=== PATIENT | female | born 1975 | race Caucasian/White ===

== ENCOUNTER 2016-09-20 18:46 | Emergency (ER) | payer OTHER ==
--- NOTE | 2016-09-20 20:27 | DIAGNOSTIC IMAGING REPORT ---
PROCEDURE: XR FOOT 3 VIEWS - LEFT INDICATION: TRAUMA TECHNIQUE: Four views of the left foot. COMPARISON: None. FINDINGS: Normal mineralization. No fractures. Normal osseous alignment. No suspicious soft-tissue calcification or radiodense foreign bodies. IMPRESSION: 1. Normal left foot.
--- NOTE | 2016-09-20 20:38 | ED ORDER SUMMARY ---
..... Patient: MIKEY GORDON OrderSheet [facility] VisitID: [id number] [address] [place] [address] 41y, F Registration Date/Time: 09/20/2016 ORDER SHEET Weight: 118.8 kg (stated) Allergies: No Known Drug Allergy GENERAL ORDERS: Foot 3V Left Urgent (19:00 09/20/2016 Marie Alejandro) (Ack 19:06 Jeny) (19:17 DDean R.N.) MEDICATION ORDERS: Motrin PO 800 mg (NOW) (19:31 09/20/2016 Marie Alejandro) (19:34 DDean R.N.) Hydrocodone-APAP PO 5/325 mg (NOW) (21:00 09/20/2016 DDean R.N. verbal order read back to Marie Alejandro) (21:01 DDean R.N.) IV FLUIDS: ORDER SHEET NOTES: [Electronically signed by Rehana Trivedi R.N. (:27 09/20/2016)] [Electronically signed by Bernardo Becerril Dr. (23:34 09/21/2016)] [Electronically locked/signed by Rehana Trivedi R.N. (:09/20/2016)]
--- NOTE | 2016-09-20 20:38 | ED CLINICAL REPORT ---
Clinical Report - Physicians/Mid Levels [facility] [address] [place] [address] 09/20/2016 18:47 [id number] Time Seen: 18:53; initial patient contact. Arrived- By private vehicle. Historian- patient. HISTORY OF PRESENT ILLNESS Chief Complaint: Injury to the left foot. The injury happened just prior to arrival. The patient sustained a moderate direct blow- dropped an object on the foot. Patient is experiencing moderate pain. Patient denies injury to the head or neck. REVIEW OF SYSTEMS The patient complains of pain on weight bearing. She has had swelling. No weakness or numbness. All systems otherwise negative, except as recorded above. PAST HISTORY Negative. Problems: no known problems. Surgeries: No history of previous surgery. Additional Surgeries: no known surgeries. Medications: Cyclobenzaprine HCl Oral 10 mg, 3x a day (david't filled for several months ). Omeprazole Oral 20 mg, daily. Vicodin Oral 5 mg, 4x a day as needed (hasn't taken for several months ). Allergies: No Known Drug Allergy. SOCIAL HISTORY Never smoker. Occasional alcohol use. No drug use. ADDITIONAL NOTES The nursing notes have been reviewed. PHYSICAL EXAM Vital Signs: 09/20/2016 18:45 BP: 154/84. HR: 96. RR: 18. O2 saturation: 97%. Temp: 98.2 F. Pain level now: 5/10. Have been reviewed. Hypertensive. Heart rate normal. Respiratory rate normal. Temperature normal. Oxygen saturation normal. Skin: Skin intact. Skin warm and dry. Extremities: Left foot: mild erythema, tenderness and swelling. Limited weight bearing secondary to pain. Neurovascular intact distally. No laceration, ecchymosis or deformity. No ankle injury. Foot and ankle exam otherwise negative. Neuro, Vascular and Tendons: Vascular status intact. Sensation intact. Motor intact. Tendon function intact. Gait: Limping gait. Neuro: Oriented X 3. No motor deficit. No sensory deficit. LABS, X-RAYS, AND EKG Lt Foot X-ray: No fracture. Normal alignment. No bony lesion, air in the soft tissue or foreign body. Joint spaces normal. Soft tissue swelling. Views: 3 view foot series. Technique: good. The X-rays were independently viewed by me and interpreted contemporaneously by me. PROGRESS AND PROCEDURES Disposition: Discharged home in good condition. Condition: good. CLINICAL IMPRESSION Single contusion to the left foot. INSTRUCTIONS Apply ice for 20 minutes four times a day until better. Don't apply ice directly to skin. You may walk and bear weight as tolerated. Your Current Medications: CONTINUE TAKING THE FOLLOWING MEDICATIONS: Cyclobenzaprine HCl Oral : 10 mg 3x a day, david't filled for several months. Omeprazole Oral : 20 mg daily. Vicodin Oral : 5 mg 4x a day, prn, hasn't taken for several months. Prescription Medications: Hydrocodone/APAP 5mg / 325mg: take 1 orally every 6 hours as needed for pain. Dispense ten (10). Follow-up: Follow up with your doctor in about four days if not better. Call for an appointment. Screening today revealed the patient's blood pressure to be in the hypertensive range. The patient should follow up with a primary care provider for blood pressure management. (Electronically signed by Bernardo Becerril Dr. 09/21/2016 23:34)
--- NOTE | 2016-09-20 20:38 | ED NURSING NOTES ---
Clinical Report - Nurses [facility] [address] [place] [address] 09/20/2016 18:47 Patient: MIKEY GORDON TRIAGE Triage time 1845. Acuity: LEVEL 4. 18:45. IRENE COMA SCORE: [place] Coma Scale: 15- eyes open spontaneously (4); best verbal response- oriented x 4 (5); best motor response- obeys commands (6). --18:54 Rehana Trivedi R.N. 18:45 09/20/16. BP: 154/84. HR: 96. RR: 18. O2 saturation: 97%. Temp: 98.2 F. Pain level now: 08/15. --18:54 Rehana Trivedi R.N. Chief Complaint: INJURY TO LEFT FOOT. --18:55 Rehana Trivedi R.N. Weight: 118.8 kg stated. Height/Length: 69 inches Per Patient. BMI: 38.7. --18:53 Rehana Trivedi R.N. Medications Cyclobenzaprine HCl Oral 10 mg, 3x a day (david't filled for several months ). Omeprazole Oral 20 mg, daily. Vicodin Oral 5 mg, 4x a day as needed (hasn't taken for several months ). --18:50 Rehana Trivedi R.N. Allergies No Known Drug Allergy. --18:51 Rehana Trivedi R.N. History Arrived by EMS. Historian: patient. Unaccompanied. Primary physician (lilly barone). This occurred just prior to arrival. Mechanism of injury: she sustained a crush injury. She has had trouble walking. ( arthritis). PAST MEDICAL HX: Tetanus status: up-to-date. The patient is post-menopausal. SOCIAL HX: Never smoker. Occasional alcohol use. No drug use. --18:54 Rehana Trivedi R.N. This occurred just prior to arrival. Mechanism of injury: (dropped #20 wood shelving on foot). --18:55 Rehana Trivedi R.N. Interventions ID band on patient. To treatment room. --18:54 Rehana Trivedi R.N. PHYSICAL ASSESSMENT 18:55. To room via stretcher. GENERAL / NEURO / PSYCH: Oriented X 4. Alert. Appears in pain. EXTREMITIES: Limited ROM present. Pain with weight bearing. Left foot: tenderness and swelling. Limited weight bearing secondary to pain. --18:57 Rehana Trivedi R.N. NURSING PROGRESS NOTES 18:55. Cold pack applied. Patient gowned. Reassurance given. Patient identifiers checked. Call light placed in reach. Side rails up. Bed placed in lowest position. Patient ready for evaluation- chart flagged. --18:56 Rehana Trivedi R.N. 19:10 09/20/16. ( port x-ray at bedside for foot films). --19:10 Rehana Trivedi R.N. 19:28 09/20/16. ( c/o worsening pain in foot, ERMD notified). --19:28 Rehana Trivedi R.N. 19:34 09/20/2016 Motrin PO Tablets 800 mg given. Allergies verified and confirmed 5 rights. --19:34 Rehana Trivedi R.N. 20:25 on phone, foot elevated on pillow, ice pack renewed. ( ice pack renewed,). --20:25 Rehana Trivedi R.N. 20:40 09/20/2016 Hydrocodone-APAP (Hydrocodone-Acetaminophen) PO 5/325 mg Tablets 1 tab given. Allergies verified, confirmed 5 rights and sedative warning given to the patient. --21:01 Rehana Trivedi R.N. DISPOSITION / DISCHARGE 20:50. Condition at departure: improved and stable. No learning barriers present. Discharge instructions provided and reviewed with the patient. Reviewed medication(s) side effects, precautions and dosing information. Prescription(s) given to the patient (vicodin,). Reviewed crutch walking and splint care instructions (ice, elevate). Reviewed referral to an orthopedic surgeon. Patient verbalized understanding. Written instructions provided in Kiswahili. ( use crutches and walking boot you have at home). The patient was discharged home and unaccompanied at time of discharge. She left the Emergency Department on crutches and via taxi. --21:26 Rehana Trivedi R.N. 20:50 09/20/16. BP: 148/80. HR: 88. RR: 18. O2 saturation: 98%. Temp: deferred. Pain level now: 08/15. --21:26 Rehana Trivedi R.N. Locked/Released at 09/20/2016 21:27 by Rehana Trivedi R.N.
--- NOTE | 2016-09-20 20:38 | ED ORDER SUMMARY ---
..... Patient: MIKEY GORDON OrderSheet [facility] VisitID: [id number] [address] [place] [address] 41y, F Registration Date/Time: 09/20/2016 ORDER SHEET Weight: 118.8 kg (stated) Allergies: No Known Drug Allergy GENERAL ORDERS: Foot 3V Left Urgent (19:00 09/20/2016 Marie Alejandro) (Ack 19:06 Jeny) (19:17 DDean R.N.) MEDICATION ORDERS: Motrin PO 800 mg (NOW) (19:31 09/20/2016 Marie Alejandro) (19:34 DDean R.N.) Hydrocodone-APAP PO 5/325 mg (NOW) (21:00 09/20/2016 DDean R.N. verbal order read back to Marie Alejandro) (21:01 DDean R.N.) IV FLUIDS: ORDER SHEET NOTES: [Electronically signed by Rehana Trivedi R.N. (:27 09/20/2016)] [Electronically signed by Bernardo Becerril Dr. (23:34 09/21/2016)] [Electronically locked/signed by Rehana Trivedi R.N. (:09/20/2016)]
--- NOTE | 2016-09-20 20:38 | ED CLINICAL REPORT ---
Clinical Report - Physicians/Mid Levels [facility] [address] [place] [address] 09/20/2016 18:47 [id number] Time Seen: 18:53; initial patient contact. Arrived- By private vehicle. Historian- patient. HISTORY OF PRESENT ILLNESS Chief Complaint: Injury to the left foot. The injury happened just prior to arrival. The patient sustained a moderate direct blow- dropped an object on the foot. Patient is experiencing moderate pain. Patient denies injury to the head or neck. REVIEW OF SYSTEMS The patient complains of pain on weight bearing. She has had swelling. No weakness or numbness. All systems otherwise negative, except as recorded above. PAST HISTORY Negative. Problems: no known problems. Surgeries: No history of previous surgery. Additional Surgeries: no known surgeries. Medications: Cyclobenzaprine HCl Oral 10 mg, 3x a day (david't filled for several months ). Omeprazole Oral 20 mg, daily. Vicodin Oral 5 mg, 4x a day as needed (hasn't taken for several months ). Allergies: No Known Drug Allergy. SOCIAL HISTORY Never smoker. Occasional alcohol use. No drug use. ADDITIONAL NOTES The nursing notes have been reviewed. PHYSICAL EXAM Vital Signs: 09/20/2016 18:45 BP: 154/84. HR: 96. RR: 18. O2 saturation: 97%. Temp: 98.2 F. Pain level now: 5/10. Have been reviewed. Hypertensive. Heart rate normal. Respiratory rate normal. Temperature normal. Oxygen saturation normal. Skin: Skin intact. Skin warm and dry. Extremities: Left foot: mild erythema, tenderness and swelling. Limited weight bearing secondary to pain. Neurovascular intact distally. No laceration, ecchymosis or deformity. No ankle injury. Foot and ankle exam otherwise negative. Neuro, Vascular and Tendons: Vascular status intact. Sensation intact. Motor intact. Tendon function intact. Gait: Limping gait. Neuro: Oriented X 3. No motor deficit. No sensory deficit. LABS, X-RAYS, AND EKG Lt Foot X-ray: No fracture. Normal alignment. No bony lesion, air in the soft tissue or foreign body. Joint spaces normal. Soft tissue swelling. Views: 3 view foot series. Technique: good. The X-rays were independently viewed by me and interpreted contemporaneously by me. PROGRESS AND PROCEDURES Disposition: Discharged home in good condition. Condition: good. CLINICAL IMPRESSION Single contusion to the left foot. INSTRUCTIONS Apply ice for 20 minutes four times a day until better. Don't apply ice directly to skin. You may walk and bear weight as tolerated. Your Current Medications: CONTINUE TAKING THE FOLLOWING MEDICATIONS: Cyclobenzaprine HCl Oral : 10 mg 3x a day, david't filled for several months. Omeprazole Oral : 20 mg daily. Vicodin Oral : 5 mg 4x a day, prn, hasn't taken for several months. Prescription Medications: Hydrocodone/APAP 5mg / 325mg: take 1 orally every 6 hours as needed for pain. Dispense ten (10). Follow-up: Follow up with your doctor in about four days if not better. Call for an appointment. Screening today revealed the patient's blood pressure to be in the hypertensive range. The patient should follow up with a primary care provider for blood pressure management. (Electronically signed by Bernardo Becerril Dr. 09/21/2016 23:34)
--- NOTE | 2016-09-20 20:38 | ED NURSING NOTES ---
Clinical Report - Nurses [facility] [address] [place] [address] 09/20/2016 18:47 Patient: MIKEY GORDON TRIAGE Triage time 1845. Acuity: LEVEL 4. 18:45. IRENE COMA SCORE: [place] Coma Scale: 15- eyes open spontaneously (4); best verbal response- oriented x 4 (5); best motor response- obeys commands (6). --18:54 Rehana Trivedi R.N. 18:45 09/20/16. BP: 154/84. HR: 96. RR: 18. O2 saturation: 97%. Temp: 98.2 F. Pain level now: 08/15. --18:54 Rehana Trivedi R.N. Chief Complaint: INJURY TO LEFT FOOT. --18:55 Rehana Trivedi R.N. Weight: 118.8 kg stated. Height/Length: 69 inches Per Patient. BMI: 38.7. --18:53 Rehana Trivedi R.N. Medications Cyclobenzaprine HCl Oral 10 mg, 3x a day (david't filled for several months ). Omeprazole Oral 20 mg, daily. Vicodin Oral 5 mg, 4x a day as needed (hasn't taken for several months ). --18:50 Rehana Trivedi R.N. Allergies No Known Drug Allergy. --18:51 Rehana Trivedi R.N. History Arrived by EMS. Historian: patient. Unaccompanied. Primary physician (lilly barone). This occurred just prior to arrival. Mechanism of injury: she sustained a crush injury. She has had trouble walking. ( arthritis). PAST MEDICAL HX: Tetanus status: up-to-date. The patient is post-menopausal. SOCIAL HX: Never smoker. Occasional alcohol use. No drug use. --18:54 Rehana rTivedi R.N. This occurred just prior to arrival. Mechanism of injury: (dropped #20 wood shelving on foot). --18:55 Rehana Trivedi R.N. Interventions ID band on patient. To treatment room. --18:54 Rehana Trivedi R.N. PHYSICAL ASSESSMENT 18:55. To room via stretcher. GENERAL / NEURO / PSYCH: Oriented X 4. Alert. Appears in pain. EXTREMITIES: Limited ROM present. Pain with weight bearing. Left foot: tenderness and swelling. Limited weight bearing secondary to pain. --18:57 Rehana Trivedi R.N. NURSING PROGRESS NOTES 18:55. Cold pack applied. Patient gowned. Reassurance given. Patient identifiers checked. Call light placed in reach. Side rails up. Bed placed in lowest position. Patient ready for evaluation- chart flagged. --18:56 Rehana Trivedi R.N. 19:10 09/20/16. ( port x-ray at bedside for foot films). --19:10 Rehana Trivedi R.N. 19:28 09/20/16. ( c/o worsening pain in foot, ERMD notified). --19:28 Rehana Trivedi R.N. 19:34 09/20/2016 Motrin PO Tablets 800 mg given. Allergies verified and confirmed 5 rights. --19:34 Rehana Trivedi R.N. 20:25 on phone, foot elevated on pillow, ice pack renewed. ( ice pack renewed,). --20:25 Rehana Trivedi R.N. 20:40 09/20/2016 Hydrocodone-APAP (Hydrocodone-Acetaminophen) PO 5/325 mg Tablets 1 tab given. Allergies verified, confirmed 5 rights and sedative warning given to the patient. --21:01 Rehana Trivedi R.N. DISPOSITION / DISCHARGE 20:50. Condition at departure: improved and stable. No learning barriers present. Discharge instructions provided and reviewed with the patient. Reviewed medication(s) side effects, precautions and dosing information. Prescription(s) given to the patient (vicodin,). Reviewed crutch walking and splint care instructions (ice, elevate). Reviewed referral to an orthopedic surgeon. Patient verbalized understanding. Written instructions provided in Sami. ( use crutches and walking boot you have at home). The patient was discharged home and unaccompanied at time of discharge. She left the Emergency Department on crutches and via taxi. --21:26 Rehana Trivedi R.N. 20:50 09/20/16. BP: 148/80. HR: 88. RR: 18. O2 saturation: 98%. Temp: deferred. Pain level now: 08/15. --21:26 Rehnaa Trivedi R.N. Locked/Released at 09/20/2016 21:27 by Rehana Trivedi R.N.
--- NOTE | 2016-09-21 23:34 | ED MED RECONCILIATION SUMMARY ---
Patient: MIKEY GORDON Medication Reconciliation Report [facility] VisitID: [id number] [address] [place] [address] 41y, F Registration Date/Time: 09/20/2016 Weight: 118.8 kg Height/Length: 69 in. BMI: 38.7 ALLERGIES: No Known Drug Allergy The patient's Home Medications are listed below: CONTINUE TAKING THE FOLLOWING MEDICATIONS: Cyclobenzaprine HCl Oral 10 mg, 3x a day, david't filled for several months Omeprazole Oral 20 mg, daily Vicodin Oral 5 mg, 4x a day, hasn't taken for several months The source(s) of the original Home Medication information: Not obtained. The following Medications were given to the patient in the Emergency Department: Motrin [PO] PO 800 mg, administered: 09/20/2016 7:34:00 PM Hydrocodone-APAP [PO] PO 1 tab, administered: 09/20/2016 8:40:00 PM The following Medications were prescribed to the patient: Hydrocodone/APAP 5mg / 325mg: take 1 orally every 6 hours as needed for pain. Dispense ten (10). -- Bernardo Becerril Dr.
--- NOTE | 2016-09-21 23:34 | ED MAR SUMMARY ---
..... Medication Administration Record [facility] [address] [place] [address] Patient: MIKEY GORDON Visit ID: [id number] 41y, F Weight: 118.8 kg Height/Length: 69 in BMI: 38.7 ALLERGIES: No Known Drug Allergy Given 19:34 09/20/2016 Rehana Trivedi, R.N. Medication Administered: MOTRIN [PO], Dose: 800 mg Tablets PO. Medication Ordered: Motrin PO 800 mg (NOW). Given 20:40 09/20/2016 Rehana Trivedi, R.N. Medication Administered: HYDROCODONE-APAP [PO] (HYDROCODONE-ACETAMINOPHEN), Dose: 1 tab 5/325 mg Tablets PO. Medication Ordered: Hydrocodone-APAP PO 5/325 mg (NOW).
--- NOTE | 2016-09-21 23:34 | ED DISCHARGE INSTRUCTIONS ---
Patient: MIKEY GORDON General Instructions [facility] VisitID: [id number] [address] [place] [address] 41y, F Registration Date/Time: 09/20/2016 Single contusion to the left foot. INSTRUCTIONS Apply ice for 20 minutes four times a day until better. Don't apply ice directly to skin. You may walk and bear weight as tolerated. Your Current Medications: CONTINUE TAKING THE FOLLOWING MEDICATIONS: Cyclobenzaprine HCl Oral : 10 mg 3x a day, david't filled for several months. Omeprazole Oral : 20 mg daily. Vicodin Oral : 5 mg 4x a day, prn, hasn't taken for several months. Prescription Medications: Hydrocodone/APAP 5mg / 325mg: take 1 orally every 6 hours as needed for pain. Dispense ten (10). Follow-up: Follow up with your doctor in about four days if not better. Call for an appointment. Screening today revealed the patient's blood pressure to be in the hypertensive range. The patient should follow up with a primary care provider for blood pressure management. ADDITIONAL INFORMATION Contusion,Soft Tissue You have a CONTUSION, which is a bruise with swelling and some bleeding under the skin. There are no broken bones. This injury takes a few days to a few weeks to heal. Home Care: 1) Keep the injured part elevated to reduce pain and swelling. This is especially important during the first 48 hours. 2) Make an ice pack (ice cubes in a plastic bag, wrapped in a towel) and apply for 20 minutes every 1-2 hours the first day. Continue this 3-4 times a day until the pain and swelling goes away. 3) You may use acetaminophen (Tylenol) or ibuprofen (Motrin, Advil) to control pain, unless another pain medicine was prescribed. [ NOTE : If you have chronic liver or kidney disease or ever had a stomach ulcer or GI bleeding, talk with your doctor before using these medicines.] Follow Up with your doctor or this facility if you are not improving within the next THREE days. [NOTE: If X-rays were taken, they will be reviewed by a radiologist. You will be notified of any new findings that may affect your care.] Get Prompt Medical Attention if any of the following occur: -- Pain or swelling increases -- Injured arm or leg becomes cold, blue, numb or tingly -- Redness, warmth or drainage from the skin Hydrocodone Bitartrate, Acetaminophen Oral tablet What is this medicine? ACETAMINOPHEN; HYDROCODONE (a set a BETI miguel fen; socrates droe KOE done) is a pain reliever. It is used to treat mild to moderate pain. How should I use this medicine? Take this medicine by mouth. Swallow it with a full glass of water. Follow the directions on the prescription label. If the medicine upsets your stomach, take the medicine with food or milk. Do not take more than you are told to take. Talk to your photography coordinator regarding the use of this medicine in children. This medicine is not approved for use in children. What side effects may I notice from receiving this medicine? Side effects that you should report to your doctor or health palliative care physician as soon as possible: allergic reactions like skin rash, itching or hives, swelling of the face, lips, or tongue breathing problems confusion feeling faint or lightheaded, falls stomach pain yellowing of the eyes or skin Side effects that usually do not require medical attention (report to your doctor or health palliative care physician if they continue or are bothersome): nausea, vomiting stomach upset What may interact with this medicine? alcohol antihistamines isoniazid medicines for depression, anxiety, or psychotic disturbances medicines for sleep muscle relaxants naltrexone narcotic medicines (opiates) for pain phenobarbital ritonavir tramadol What if I miss a dose? If you miss a dose, take it as soon as you can. If it is almost time for your next dose, take only that dose. Do not take double or extra doses. Where should I keep my medicine? Keep out of the reach of children. This medicine can be abused. Keep your medicine in a safe place to protect it from theft. Do not share this medicine with anyone. Selling or giving away this medicine is dangerous and against the law. Store at room temperature between 15 and 30 degrees C (59 and 86 degrees F). Protect from light. Keep container tightly closed. Throw away any unused medicine after the expiration date. Discard unused medicine and used packaging carefully. Pets and children can be harmed if they find used or lost packages. What should I tell my health care provider before I take this medicine? They need to know if you have any of these conditions: brain tumor Crohn's disease, inflammatory bowel disease, or ulcerative colitis drink more than 3 alcohol-containing drinks per day drug abuse or addiction head injury heart or circulation problems kidney disease or problems going to the bathroom liver disease lung disease, asthma, or breathing problems an unusual or allergic reaction to acetaminophen, hydrocodone, other opioid analgesics, other medicines, foods, dyes, or preservatives or trying to get breast-feeding What should I watch for while using this medicine? Tell your doctor or health palliative care physician if your pain does not go away, if it gets worse, or if you have new or a different type of pain. You may develop tolerance to the medicine. Tolerance means that you will need a higher dose of the medicine for pain relief. Tolerance is normal and is expected if you take the medicine for a long time. Do not suddenly stop taking your medicine because you may develop a severe reaction. Your body becomes used to the medicine. This does NOT mean you are addicted. Addiction is a behavior related to getting and using a drug for a non-medical reason. If you have pain, you have a medical reason to take pain medicine. Your doctor will tell you how much medicine to take. If your doctor wants you to stop the medicine, the dose will be slowly lowered over time to avoid any side effects. You may get drowsy or dizzy when you first start taking the medicine or change doses. Do not drive, use machinery, or do anything that may be dangerous until you know how the medicine affects you. Stand or sit up slowly. There are different types of narcotic medicines (opiates) for pain. If you take more than one type at the same time, you may have more side effects. Give your health care provider a list of all medicines you use. Your doctor will tell you how much medicine to take. Do not take more medicine than directed. Call emergency for help if you have problems breathing. The medicine will cause constipation. Try to have a bowel movement at least every 2 to 3 days. If you do not have a bowel movement for 3 days, call your doctor or health palliative care physician. Too much acetaminophen can be very dangerous. Do not take Tylenol (acetaminophen) or medicines that contain acetaminophen with this medicine. Many non-prescription medicines contain acetaminophen. Always read the labels carefully. You have been given the following additional information: Contusion, Soft Tissue Hydrocodone Bitartrate, Acetaminophen Oral tablet You may walk and bear weight as tolerated. (Electronically signed by Bernardo Becerril Dr. 09/21/2016 23:34)
--- NOTE | 2016-09-21 23:34 | ED MAR SUMMARY ---
..... Medication Administration Record [facility] [address] [address] Patient: MIKEY GORDON Visit ID: [id number] 41y, F Weight: 118.8 kg Height/Length: 69 in BMI: 38.7 ALLERGIES: No Known Drug Allergy Given 19:34 09/20/2016 Rehana Trivedi, R.N. Medication Administered: MOTRIN [PO], Dose: 800 mg Tablets PO. Medication Ordered: Motrin PO 800 mg (NOW). Given 20:40 09/20/2016 Rehana Trivedi, R.N. Medication Administered: HYDROCODONE-APAP [PO] (HYDROCODONE-ACETAMINOPHEN), Dose: 1 tab 5/325 mg Tablets PO. Medication Ordered: Hydrocodone-APAP PO 5/325 mg (NOW).
--- NOTE | 2016-09-21 23:34 | ED MED RECONCILIATION SUMMARY ---
Patient: MIKEY GORDON Medication Reconciliation Report [facility] VisitID: [id number] [address] [place] [address] 41y, F Registration Date/Time: 09/20/2016 Weight: 118.8 kg Height/Length: 69 in. BMI: 38.7 ALLERGIES: No Known Drug Allergy The patient's Home Medications are listed below: CONTINUE TAKING THE FOLLOWING MEDICATIONS: Cyclobenzaprine HCl Oral 10 mg, 3x a day, david't filled for several months Omeprazole Oral 20 mg, daily Vicodin Oral 5 mg, 4x a day, hasn't taken for several months The source(s) of the original Home Medication information: Not obtained. The following Medications were given to the patient in the Emergency Department: Motrin [PO] PO 800 mg, administered: 09/20/2016 7:34:00 PM Hydrocodone-APAP [PO] PO 1 tab, administered: 09/20/2016 8:40:00 PM The following Medications were prescribed to the patient: Hydrocodone/APAP 5mg / 325mg: take 1 orally every 6 hours as needed for pain. Dispense ten (10). -- Bernardo Becerril Dr.
--- NOTE | 2016-09-21 23:34 | ED DISCHARGE INSTRUCTIONS ---
Patient: MIKEY GORDON General Instructions [facility] VisitID: [id number] [address] [address] 41y, F Registration Date/Time: 09/20/2016 Single contusion to the left foot. INSTRUCTIONS Apply ice for 20 minutes four times a day until better. Don't apply ice directly to skin. You may walk and bear weight as tolerated. Your Current Medications: CONTINUE TAKING THE FOLLOWING MEDICATIONS: Cyclobenzaprine HCl Oral : 10 mg 3x a day, david't filled for several months. Omeprazole Oral : 20 mg daily. Vicodin Oral : 5 mg 4x a day, prn, hasn't taken for several months. Prescription Medications: Hydrocodone/APAP 5mg / 325mg: take 1 orally every 6 hours as needed for pain. Dispense ten (10). Follow-up: Follow up with your doctor in about four days if not better. Call for an appointment. Screening today revealed the patient's blood pressure to be in the hypertensive range. The patient should follow up with a primary care provider for blood pressure management. ADDITIONAL INFORMATION Contusion,Soft Tissue You have a CONTUSION, which is a bruise with swelling and some bleeding under the skin. There are no broken bones. This injury takes a few days to a few weeks to heal. Home Care: 1) Keep the injured part elevated to reduce pain and swelling. This is especially important during the first 48 hours. 2) Make an ice pack (ice cubes in a plastic bag, wrapped in a towel) and apply for 20 minutes every 1-2 hours the first day. Continue this 3-4 times a day until the pain and swelling goes away. 3) You may use acetaminophen (Tylenol) or ibuprofen (Motrin, Advil) to control pain, unless another pain medicine was prescribed. [ NOTE : If you have chronic liver or kidney disease or ever had a stomach ulcer or GI bleeding, talk with your doctor before using these medicines.] Follow Up with your doctor or this facility if you are not improving within the next THREE days. [NOTE: If X-rays were taken, they will be reviewed by a radiologist. You will be notified of any new findings that may affect your care.] Get Prompt Medical Attention if any of the following occur: -- Pain or swelling increases -- Injured arm or leg becomes cold, blue, numb or tingly -- Redness, warmth or drainage from the skin Hydrocodone Bitartrate, Acetaminophen Oral tablet What is this medicine? ACETAMINOPHEN; HYDROCODONE (a set a BETI miguel fen; socrates droe KOE done) is a pain reliever. It is used to treat mild to moderate pain. How should I use this medicine? Take this medicine by mouth. Swallow it with a full glass of water. Follow the directions on the prescription label. If the medicine upsets your stomach, take the medicine with food or milk. Do not take more than you are told to take. Talk to your field training manager regarding the use of this medicine in children. This medicine is not approved for use in children. What side effects may I notice from receiving this medicine? Side effects that you should report to your doctor or health home day care provider as soon as possible: allergic reactions like skin rash, itching or hives, swelling of the face, lips, or tongue breathing problems confusion feeling faint or lightheaded, falls stomach pain yellowing of the eyes or skin Side effects that usually do not require medical attention (report to your doctor or health home day care provider if they continue or are bothersome): nausea, vomiting stomach upset What may interact with this medicine? alcohol antihistamines isoniazid medicines for depression, anxiety, or psychotic disturbances medicines for sleep muscle relaxants naltrexone narcotic medicines (opiates) for pain phenobarbital ritonavir tramadol What if I miss a dose? If you miss a dose, take it as soon as you can. If it is almost time for your next dose, take only that dose. Do not take double or extra doses. Where should I keep my medicine? Keep out of the reach of children. This medicine can be abused. Keep your medicine in a safe place to protect it from theft. Do not share this medicine with anyone. Selling or giving away this medicine is dangerous and against the law. Store at room temperature between 15 and 30 degrees C (59 and 86 degrees F). Protect from light. Keep container tightly closed. Throw away any unused medicine after the expiration date. Discard unused medicine and used packaging carefully. Pets and children can be harmed if they find used or lost packages. What should I tell my health care provider before I take this medicine? They need to know if you have any of these conditions: brain tumor Crohn's disease, inflammatory bowel disease, or ulcerative colitis drink more than 3 alcohol-containing drinks per day drug abuse or addiction head injury heart or circulation problems kidney disease or problems going to the bathroom liver disease lung disease, asthma, or breathing problems an unusual or allergic reaction to acetaminophen, hydrocodone, other opioid analgesics, other medicines, foods, dyes, or preservatives or trying to get breast-feeding What should I watch for while using this medicine? Tell your doctor or health home day care provider if your pain does not go away, if it gets worse, or if you have new or a different type of pain. You may develop tolerance to the medicine. Tolerance means that you will need a higher dose of the medicine for pain relief. Tolerance is normal and is expected if you take the medicine for a long time. Do not suddenly stop taking your medicine because you may develop a severe reaction. Your body becomes used to the medicine. This does NOT mean you are addicted. Addiction is a behavior related to getting and using a drug for a non-medical reason. If you have pain, you have a medical reason to take pain medicine. Your doctor will tell you how much medicine to take. If your doctor wants you to stop the medicine, the dose will be slowly lowered over time to avoid any side effects. You may get drowsy or dizzy when you first start taking the medicine or change doses. Do not drive, use machinery, or do anything that may be dangerous until you know how the medicine affects you. Stand or sit up slowly. There are different types of narcotic medicines (opiates) for pain. If you take more than one type at the same time, you may have more side effects. Give your health care provider a list of all medicines you use. Your doctor will tell you how much medicine to take. Do not take more medicine than directed. Call emergency for help if you have problems breathing. The medicine will cause constipation. Try to have a bowel movement at least every 2 to 3 days. If you do not have a bowel movement for 3 days, call your doctor or health home day care provider. Too much acetaminophen can be very dangerous. Do not take Tylenol (acetaminophen) or medicines that contain acetaminophen with this medicine. Many non-prescription medicines contain acetaminophen. Always read the labels carefully. You have been given the following additional information: Contusion, Soft Tissue Hydrocodone Bitartrate, Acetaminophen Oral tablet You may walk and bear weight as tolerated. (Electronically signed by Bernardo Becerril Dr. 09/21/2016 23:34)
== END 2016-09-20 20:50 | disposition home or self-care (01) ==
LOC: ED SRH 18:46
DX: S90.32XA Contusion of left foot, initial encounter (principal); W20.8XXA Other cause of strike by thrown, projected or falling object, initial encounter; Y93.9 Activity, unspecified; Y92.9 Unspecified place or not applicable; Y99.9 Unspecified external cause status; Z79.899 Other long term (current) drug therapy